=== PATIENT | male | born 1990 | race African-American/Black ===

== ENCOUNTER 2017-04-02 13:38 | Emergency (ER) | payer OTHER ==
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
== END 2017-04-02 15:49 | disposition home or self-care (01) ==
LOC: CED 13:38 → CFTX 13:38
DX: S29.012A Strain of muscle and tendon of back wall of thorax, initial encounter (principal); V89.2XXA Person injured in unspecified motor-vehicle accident, traffic, initial encounter; Y92.410 Unspecified street and highway as the place of occurrence of the external cause
CPT/HCPCS: 72072; 72100; 99283